=== PATIENT | male | born 1940 | race Caucasian/White ===

== ENCOUNTER → 2016-07-11 | Outpatient (CLI) | payer MEDICARE, OTHER ==
--- NOTE | 2016-07-11 14:28 | RADRPT ---
PROCEDURE: XR right knee. CLINICAL INDICATION: Knee pain. TECHNIQUE: AP weightbearing, lateral weightbearing and sunrise views are available for review. 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 There is no evidence of loosening of the prosthesis. The osseous structures are normal in mineralization, architecture and alignment No acute fracture or dislocation is seen.No osseous lesions are identified. The soft tissues are unremarkable . IMPRESSION: Unremarkable constrained total knee replacement. RPTAT: [facility] .Phani Helton MD, Date Time Electronically viewed and signed by .Phani Helton MD, on 07/11/2016 14:27 .B/
--- NOTE | 2016-07-12 06:49 | HKNOTE ---
DATE OF SERVICE: 07/11/2016 MAIN COMPLAINT: Pain in the right knee. 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 Dr. Josep Lawton performed an operative arthroscopy and subsequently Dr Caridad Martinez performed an osteotomy. His knee arthritis progressed and in 08/1996, Dr. Guevara Abdi performed a right knee replacement. The patient indicates that he has had pain in the knee ever si nce then. He has seen multiple doctors including Dr. Momin, Dr. Eagle and for this mitzi n. He has not been able to get to the bottom of it. PRESENT COMPLAINTS: The pain in his knee is located over the anterior aspect of the knee. He state s that "is not really a pain, it feels like a tightness." Walking does not aggravate the pain. Occasionally it feels as if somebody is pouring "boiling water over my skin in the front of the kn ee." The patient also gets burning pain in the knee. He can walk about 3 blocks at a time and then he has to sit down. His pain is aggravated by walking, weightbearing and stair climbing. He indicates that the mitzi n is in the area of the tibial tendon and rotates around the medial side of the knee along the knee joint line. He does have a slight limp most of the time. He does not have a shoe lift. He can clip his toenail s and tie his shoelaces. PAST ORTHOPEDIC SURGICAL PROCEDURES: See above. PRIOR CORTISONE INTAKE: Once. ALCOHOL INTAKE: None, he drinks an occasional glass of wine. OTHER JOINT PROBLEMS: None. BLOOD TESTS FOR ARTHRITIS: None. PRIOR INJURIES TO HIPS OR KNEES: None. WORK STATUS: The patient is retired. He used to be in retail. PAST MEDICAL HISTORY: Negative. PAST SURGICAL HISTORY: Orthopedic operations as noted above. ALLERGIES: NONE. MEDICATIONS: 1. Atorvastatin 20 mg daily for cholesterol. 2. Avodart 0.5 mg daily for his prostate. 3. Mobic 7.5 mg daily. FAMILY HISTORY: Father at 86 of a stroke. Mother at 89 from heart problems. SYSTEMS REVIEW: History of skin cancer. Otherwise, entirely negative. HABITS: The patient does not smoke. He drinks a half a glass of wine a day. [employer]ER: Dr. Devonte Hogan, [address] [id number]. PHYSICAL EXAMINATION GENERAL: The patient is a remarkably fit-looking 76-year-old male. He walks without a walking aid. His gait is normal. VITAL SIGNS: Height 5 feet 10-1/2 inches. Weight 168 pounds. Blood pressure 145/95, temperature 9 8.3. RIGHT KNEE: The right knee shows normal alignment. Active and passive extension is 0 degrees. Activ e and passive flexion is 135 degrees. The medial and lateral collateral ligaments and cruciate ligam ents are intact. Rona test is negative. There is no effusion, tenderness, or cysts. The patella t racks normally. There is no tenderness on the articular surface of the patella or in the patellar gr oove. The Q angle is normal. Multiple scars of previous surgeries running parallel to the leg. No external sign of infection or inflammation. 1+ crepitus in the knee. Absolutely no swelling. No tenderness anywhere around the knee. IMAGING: Plain x-rays of the right knee obtained today were reviewed. These show knee replacement implant components which have been extremely well placed and are well attached to the bone. DISCUSSION: The patient is advised that the knee implant appears to be well attached to the bone an d well aligned and that there is absolutely no reason to remove it. I do believe that his pain his neurological in origin. He has fairly characteristic of such neurological pains to be represented a s being "like boiling water being poured on my leg" or a "tight feeling." MANAGEMENT: The patient is being sent for an MRI scan of the lumbar spine and he will be seen again after for reevaluation. Dictated By: URI LOWRY/RANDALL Conf#: [id number] DID#: [id number]
== END | disposition home or self-care (01) ==
LOC: HKI 13:27
DX: M17.11 Unilateral primary osteoarthritis, right knee (principal); M25.561 Pain in right knee; Z96.651 Presence of right artificial knee joint
CPT/HCPCS: 73562; G0463

== ENCOUNTER → 2016-08-08 | Outpatient (CLI) | payer MEDICARE, OTHER ==
--- NOTE | 2016-08-08 20:52 | HKNOTE ---
DATE OF SERVICE: 08/08/2016 The patient comes in with the MRI of his lumbar spine for review. The study is reported by Dr. Geovanny Avalos as showing "at L5-S1 there is degenerative anterolisthesis with central protrusion and f acet and ligamentum flavum hypertrophy without canal or foraminal stenosis. Redundant disk protrudi ng cephalad into the neural foramen moderately narrows the left and moderately narrows the right bandar ral foramen." DISCUSSION: It is quite possible that there is still some sort of nerve irritation coming from the lumbar spine which accordingly is unusual symptoms of a feeling of boiling water being poured over h is leg. I called Johnny, the painter ski edge who agrees with me that this sensation is almost certainly neurological in origin. The patient did have the pain today in the office. In order to give some affirmation to the diagnos is, his knee was injected with 5 mL of 2% lidocaine. This made absolutely no difference to his pain . The patient is being referred to Johnny for spine/pain management. Dictated By: URI LOWRY/RANDALL Conf#: [id number] DID#: [id number]
== END | disposition home or self-care (01) ==
LOC: HKI 13:42
DX: M43.16 Spondylolisthesis, lumbar region (principal)